=== PATIENT | male | born 1955 | race Caucasian/White ===

== ENCOUNTER → 2019-05-10 | Outpatient (CLI) | payer BC ==
--- NOTE | 2019-05-10 11:20 | RAD ---
ABDOMEN COMPLETE History: Abnormal liver function tests Comparison: None available Findings: Multiple sonographic images of the abdomen are submitted. There is no abnormality of the visualized pancreas. Hepatic echotexture is within normal limits. Right lobe of liver measured 16 cm longitudinal. Common bile duct is within normal about 0.6 cm. There has been cholecystectomy. Right kidney measured 10.9 x 4.1 x 3.8 cm, no hydronephrosis. Left kidney measured 11.7 x 4.4 x 5.1 cm, no hydronephrosis. Spleen measured 11 cm, some granulomas present. Impression: 1. No significant abnormality is demonstrated. There has been cholecystectomy. Electronically signed by: Stephon Benton MD (05/10/2019 11:17 AM) [id number]
== END | disposition home or self-care (01) ==
LOC: US 07:38
PROVIDERS: ATTEND Family Medicine
DX: R94.5 Abnormal results of liver function studies (principal); L92.9 Granulomatous disorder of the skin and subcutaneous tissue, unspecified; N13.30 Unspecified hydronephrosis; Z90.49 Acquired absence of other specified parts of digestive tract
CPT/HCPCS: 76700

== ENCOUNTER → 2020-04-13 | Outpatient (CLI) | payer MEDICARE ==
[~2020-04-13] MED LIST: IOHEXOL 240 MG/ML 50ML VIAL. ONE; IOHEXOL 240 MG/ML 50ML VIAL. PO ONE; IOHEXOL 300 MG/ML 75 ML VIAL. IV ONE
--- NOTE | 2020-04-14 09:42 | RAD ---
CT NECK CHEST ABD PELVIS W CON Clinical Indication: Weight loss, history of malignancy COMPARISON: None TECHNIQUE: Multiple contiguous axial images were obtained throughout the chest, abdomen, and pelvis with the use of IV contrast. Axial images were reformatted into coronal and sagittal planes. 75 mL Omnipaque 300 was administered. One or more of the following dose reduction techniques were utilized: Automated exposure control (AEC), Adjustment of mA and/or kV according to patient size, Use of iterative reconstruction technique such as ASiR, CT scan done according to ALARA and image gently/image wisely. Findings: Scattered subcentimeter lymph nodes are seen in the neck. None are pathologically enlarged or abnormally enhancing. The parotid, submandibular, and thyroid glands are atrophic. The muscles of the neck are normal. Vessels of the neck demonstrate normal course, caliber, and enhancement. The visualized aerodigestive tract is normal. The visualized posterior fossa and brain is unremarkable. Moderate right maxillary sinus disease. Left maxillary sinus mucus retention cyst. There is no axillary, mediastinal, or hilar adenopathy. Calcified mediastinal and hilar lymph nodes consistent with remote renal disease disease. The thoracic aorta diameter is normal. The cardiac size is normal. Coronary artery atherosclerotic disease. There is no pericardial effusion. The central airways are patent. No pulmonary mass or consolidation. Calcified pulmonary granulomas. No pleural effusion is observed. There is no pneumothorax. Paraseptal and centrilobular emphysema. The liver, pancreas, and adrenal glands are unremarkable. Cholecystectomy. Calcified splenic granulomas. Duplicated left renal collecting system. No hydronephrosis or opaque urinary calculi. There is no significant mesenteric or retroperitoneal adenopathy identified. There is no evidence of free intraperitoneal fluid or pneumoperitoneum. Mild colonic diverticulosis. Diffuse aortoiliac atherosclerotic disease. Bladder is unremarkable. There is no significant pelvic ascites. No significant iliac or inguinal adenopathy is identified. Degenerative changes of the spine. No aggressive lytic or blastic osseous lesions. IMPRESSION: No mass or lymphadenopathy in the neck, chest, abdomen, or pelvis. Electronically signed by: Stephon Breaux MD (04/14/2020 9:39 AM) [facility]
== END | disposition home or self-care (01) ==
LOC: CT 12:52
PROVIDERS: ATTEND Family Medicine
DX: C76.0 Malignant neoplasm of head, face and neck (principal); R63.4 Abnormal weight loss
CPT/HCPCS: 70491; 71260; 74177; Q9967

== ENCOUNTER 2021-07-30 11:50 | Inpatient (IN) | payer MEDICARE ==
[~2021-07-30] VITALS: Ht 170.2 cm; Wt 66.4 kg
--- NOTE | 2021-07-30 12:26 | PHYS DOC ---
Past History Past Surgical History: No Surgical History Alcohol Use: None General Adult EDM: Chief Complaint: SHORTNESS OF BREATH HPI: HPI: 66-year-old male presents with shortness of breath. Patient was diagnosed COVID-19 positive a few days ago. He was placed on medications by his primary care physician including azithromycin supplements, and an inhaler. The patient called EMS today because he is feeling more short of breath. When he stands up and attempts to do anything he gets dizzy. He also has some persistent nausea. Patient was not vaccinated against COVID-19. He denies chest pain. Patient has never been on oxygen previously. He is requiring 3 to 4 L at this time. No history of COPD or asthma. Review of Systems: Review of Systems: Constitutional: Denies fever or chills Eyes: Denies change in visual acuity HENT: Denies nasal congestion or sore throat Respiratory: shortness of breath Cardiovascular: Denies chest pain or edema GI: Denies abdominal pain, nausea, vomiting, bloody stools or diarrhea : Denies dysuria Musculoskeletal: Denies back pain or joint pain Integument: Denies rash Neurologic: Dizziness. Denies headache, focal weakness or sensory changes Endocrine: Denies polyuria or polydipsia Lymphatic: Denies swollen glands Psychiatric: Denies depression or anxiety Allergies: Allergies: Allergies Coded Allergies Type Severity Reaction Last Updated Verified No Known Drug Allergies 04/13/20 No Physical Exam: PE: Constitutional: Well developed, well nourished, no acute distress, non-toxic appearance. [] HENT: Normocephalic, atraumatic, bilateral external ears normal, oropharynx moist, no oral exudates, nose normal. [] Eyes: PERRLA, EOMI, conjunctiva normal, no discharge. [] Neck: Normal range of motion, no tenderness, supple, no stridor. [] Cardiovascular: Heart rate regular rhythm, no murmur [] Lungs & Thorax: Bilateral breath sounds diminished. on 3L nasal cannula. [] Abdomen: Bowel sounds normal, soft, no tenderness, no masses, no pulsatile masses. [] Skin: Warm, dry, no erythema, no rash. [] Back: No tenderness, no CVA tenderness. [] Extremities: No tenderness, no cyanosis, no clubbing, ROM intact, no edema. [] Neurologic: Alert and oriented X 3, normal motor function, normal sensory function, no focal deficits noted. [] Psychologic: Affect normal, judgement normal, mood normal. [] Current Patient Data: Vital Signs: Vital Signs Date Time Temp Pulse Resp B/P (MAP) Pulse Ox O2 Delivery O2 Flow Rate FiO2 07/30/21 12:00 93 4.0 07/30/21 11:53 98.3 83 16 148/88 (108) Nasal Cannula EKG: EKG: [] Radiology/Procedures: Radiology/Procedures: [] Impressions: CTA chest with contrast dated 07/30/2021. COMPARISON: None CLINICAL INDICATION: Shortness of breath. Covid 19. TECHNIQUE: Contiguous axial imaging of the chest performed following intravenous and administration of 100 cc Omnipaque 350. Study was performed as dedicated PE protocol with thin cut coronal MIPS 3-D reconstruction. One or more of the following individualized dose reduction techniques were utilized for this examination: 1. Automated exposure control 2. Adjustment of the mA and/or kV according to patient size 3. Use of iterative reconstruction technique FINDINGS: Contrast bolus is adequate. No evidence of central, lobar or segmental pulmonary embolus. Subsegmental branches are not well evaluated based on technique. Heart size is upper limits of normal. No pericardial effusion. Coronary artery calcifications. There are calcified mediastinal and right hilar lymph nodes. Central airways are patent. Patchy groundglass opacity throughout both lungs, peripheral and basilar predominant. There is superimposed mild to moderate emphysema. No significant pleural effusion. No pneumothorax. Images of the upper abdomen are unremarkable. Bone windows show no acute findings. Multilevel spondylosis. IMPRESSION: 1. No evidence of central, lobar or segmental pulmonary embolus. 2. Patchy groundglass opacity throughout both lungs, consistent with history of Covid 19 pneumonitis. 3. Mild to moderate emphysema. 4. Old granulomatous disease. 5. Coronary artery calcifications. Electronically signed by: Jung Lazaro MD (07/30/2021 1:20 PM) [facility] [place] DICTATED AND SIGNED BY: JUNG LAZARO MD DATE: 07/30/21 1311 CC: TERENCE ORDAZ MD; LUKASZ SURESH DO ~MTH0 0 Heart Score: C/O Chest Pain: No Risk Factors: Risk Factors: DM, Current or recent (<one month) smoker, HTN, HLP, family history of CAD, obesity. Risk Scores: Score 0 - 3: 2.5% MACE over next 6 weeks - Discharge Home Score 4 - 6: 20.3% MACE over next 6 weeks - Admit for Clinical Observation Score 7 - 10: 72.7% MACE over next 6 weeks - Early Invasive Strategies Course & Med Decision Making: Course & Med Decision Making Pertinent Labs and Imaging studies reviewed. (See chart for details) The patient's labs are unremarkable. His CT CTA of the chest shows no pulmonary embolus but he does have bilateral groundglass opacities consistent with COVID- 19. I have covered him with Rocephin and. He is requiring oxygen to maintain his oxygen saturation. I will admit him to the hospital. I spoke with Dr. Colon and he has accepted the patient for admission. [] Dragon Disclaimer: Dragon Disclaimer: This electronic medical record was generated, in whole or in part, using a voice recognition dictation system. Departure Departure: Impression: Primary Impression: COVID-19 Additional Impression: Pneumonia of both lungs Disposition: ADMITTED INPATIENT Admitting Physician: Andree Colon Condition: STABLE Referrals: TERENCE ORDAZ MD (PCP) LUKASZ SURESH DO Jul 30, 2021 12:26
[2021-07-30] MEDS ORDERED: CONTRAST GIVEN. MC PRN (12:45)
[2021-07-30] MEDS ORDERED: IOHEXOL 350 MG/ML 100 ML VIAL. IV ONE (12:45)
[2021-07-30 13:22] LABS: BGAS PH 7.46 (7.35-7.46)
--- NOTE | 2021-07-30 13:22 | RAD ---
CTA chest with contrast dated 07/30/2021. COMPARISON: None CLINICAL INDICATION: Shortness of breath. Covid 19. TECHNIQUE: Contiguous axial imaging of the chest performed following intravenous and administration of 100 cc Om nipaque 350. Study was performed as dedicated PE protocol with thin cut coronal MIPS 3-D reconstructi on. One or more of the following individualized dose reduction techniques were utilized for this examinat ion: 1. Automated exposure control 2. Adjustment of the mA and/or kV according to patient size 3. Use of iterative reconstruction technique FINDINGS: Contrast bolus is adequate. No evidence of central, lobar or segmental pulmonary embolus. Subsegmenta l branches are not well evaluated based on technique. Heart size is upper limits of normal. No pericardial effusion. Coronary artery calcifications. There are calcified mediastinal and right hilar lymph nodes. Central airways are patent. Patchy groundglass opacity throughout both lungs, peripheral and basilar predominant. There is superimposed mild to moderate emphysema. No significant pleural effusion. No pn eumothorax. Images of the upper abdomen are unremarkable. Bone windows show no acute findings. Multilevel spondyl osis. IMPRESSION: 1. No evidence of central, lobar or segmental pulmonary embolus. 2. Patchy groundglass opacity throughout both lungs, consistent with history of Covid 19 pneumonitis. 3. Mild to moderate emphysema. 4. Old granulomatous disease. 5. Coronary artery calcifications. Electronically signed by: Jung Lazaro MD (07/30/2021 1:20 PM) [facility]
[2021-07-30 13:30] LABS: BASO % 1 % (0-3); EOS % 0 % (0-3); HEMATOCRIT 39.4 % (39.0-53.0); HEMOGLOBIN 13.5 g/dL (13.0-17.5); LYMPH # 0.4 x10^3/uL (1.0-4.8); LYMPH % 8 % (24-48); MEAN CORPUSCULAR HEMOGLOBIN 33 pg (25-35); MEAN CORPUSCULAR HGB CONC 34 g/dL (31-37); MEAN CORPUSCULAR VOLUME 95 fL (79-100); MONO # 0.3 x10^3/uL (0.0-1.1); MONO % 6 % (0-9); NEUT # 3.8 x10^3uL (1.8-7.7); NEUT % 85 % (31-73); PLATELET COUNT 151 x10^3/uL (140-400); RED BLOOD COUNT 4.13 x10^6/uL (4.30-5.70); RED CELL DISTRIBUTION WIDTH 13.6 % (11.5-14.5); WHITE BLOOD COUNT 4.4 x10^3/uL (4.0-11.0)
--- NOTE | 2021-07-30 13:31 | EKG ---
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
[2021-07-30 13:39] LABS: CALCIUM 8.3 mg/dL (8.5-10.1); CREATININE 0.7 mg/dL (0.7-1.3); GFR 113.5; POTASSIUM 3.9 mmol/L (3.5-5.1)
[2021-07-30 13:44] LABS: ALBUMIN 2.8 g/dL (3.4-5.0); ALBUMIN/GLOBULIN RATIO 0.7 (1.0-1.7); TOTAL BILIRUBIN 0.4 mg/dL (0.2-1.0); TOTAL PROTEIN 6.8 g/dL (6.4-8.2)
[2021-07-30] MEDS ORDERED: IV NORMAL SALINE 50ML 50 ML ONE (14:59)
[2021-07-30] MEDS ORDERED: cefTRIAXone SODIUM 1 GM VIAL ONE (14:59)
[2021-07-30] MEDS ORDERED: DEXAMETHASONE SOD PHOS 10 MG/ML VIAL. IVP ONE (15:00)
[2021-07-30] MEDS ORDERED: AZITHROMYCIN 250 MG TABLET. PO ONE (15:00)
[2021-07-30] MEDS ORDERED: ENOXAPARIN 40 MG/0.4 ML SYRINGE. SQ ONE (15:15)
[2021-07-30] MEDS ORDERED: ONDANSETRON PF 4 MG/2 ML VIAL. IVP PRN (15:30)
--- NOTE | 2021-07-30 19:20 | NUR ---
The patient, CHANTELLE DOZIER, 66 y/o, M admitted by GENI RIVERA MD, was given written information regarding hospital policies, unit procedures and contact persons. Valuables were checked and vitals obtained. Pt is admitted with Covid 19 and PNE. Pt is requiring 4L of oxygen which he does not use at home. Pt is up standby do to fall at home. He is A&Ox4 able to express own concerns. Will continue to monitor.
[2021-07-30 19:31] VITALS: BP 117/76
[2021-07-30] MEDS ORDERED: ZOLPIDEM 5 MG TABLET. PO PRN (21:00)
[2021-07-30] MEDS ORDERED: HYDROcodone/APAP 10/325 1 TAB TABLET PO PRN (21:00)
[2021-07-30] MEDS ORDERED: REMDESIVIR LOAD in IV NORMAL SALINE 250ML TV IV ONE (22:00)
[2021-07-30 23:48] VITALS: BP 127/75
[2021-07-31] MEDS: DEXAMETHASONE SOD PHOS 10 MG/ML VIAL. IV SCH ×2 (05:37→12:04)
[2021-07-31] MEDS ORDERED: LEVOTHYROXINE 112 MCG TABLET PO SCH (06:00)
[2021-07-31 06:34] VITALS: BP 114/72
--- NOTE | 2021-07-31 06:54 | NUR ---
PTS NC OFF WHEN GETTING VIALS THIS AM. PT O2 SAT WAS 67 PERCENT. O2 APPLIED AT 10 LITERS PT SATURATION WOULDN'T GET ABOVE 86 PERCENT. RESPIRATORY CALLED AND SAW PT EDUCATED ON INCENTIVE SPIROMETRY AND Monday. PT VERBALIZED UNDERSTANDING. VITALS MACHINE LEFT IN PTS ROOM SO PT COULD MONITOR 02 SAT. PT ON 12 LITERS HIGH FLOW NC CURRENTLY SATING AT 91 PERCENT. WILL CONTINUE TO MONITOR PT.
[2021-07-31 07:16] LABS: HEMATOCRIT 39.7 % (39.0-53.0); HEMOGLOBIN 13.6 g/dL (13.0-17.5); RED BLOOD COUNT 4.1 x10^6/uL (4.30-5.70); WHITE BLOOD COUNT 4.8 x10^3/uL (4.0-11.0)
[2021-07-31 07:37] LABS: ALBUMIN 2.7 g/dL (3.4-5.0); ALBUMIN/GLOBULIN RATIO 0.6 (1.0-1.7); C REACTIVE PROTEIN 67.5 mg/L (0-3.3); CALCIUM 8.5 mg/dL (8.5-10.1); CREATININE 0.9 mg/dL (0.7-1.3); POTASSIUM 4.1 mmol/L (3.5-5.1); TOTAL BILIRUBIN 0.3 mg/dL (0.2-1.0); TOTAL PROTEIN 6.9 g/dL (6.4-8.2)
[2021-07-31] MEDS ORDERED: IPRATRPIUM/ALBUTEROL 0.5/2.5MG 3 ML NEBU. ONE (08:30)
[2021-07-31] MEDS ORDERED: BUDESONIDE 0.5 MG/2 ML NEBU ONE (08:30)
[2021-07-31] MEDS ORDERED: ATORVASTATIN CALCIUM 20 MG TABLET PO SCH (09:00)
[2021-07-31] MEDS ORDERED: FAMOTIDINE 20 MG TABLET PO SCH (09:30)
[2021-07-31] MEDS ORDERED: ASCORBIC ACID 1,000 MG TABLET PO SCH (09:30)
[2021-07-31] MEDS ORDERED: ZINC SULFATE 220 MG CAPSULE. PO SCH (09:30)
[2021-07-31 11:01] VITALS: BP 112/72
[2021-07-31] MEDS ORDERED: IPRATRPIUM/ALBUTEROL 0.5/2.5MG 3 ML NEBU. NEB SCH (12:00)
[2021-07-31 16:05] VITALS: BP 111/61
--- NOTE | 2021-07-31 16:24 | HP ---
DATE OF SERVICE: 07/31/2021 ADMIT DATE: 07/30/2021 HISTORY OF PRESENT ILLNESS: The patient is a 66-year-old male patient who presented to the Emergency Room of [facility] with a complaint of shortness of breath. The patient was diagnosed with COVID-19 positive a few days ago. He was placed on medication by his primary care physician including Zithromax, supplements and inhaler. The patient called EMS on the day of admission because he is feeling much short of breath. When he stands up and attempts to do anything, he gets very dizzy. He also has some persistent nausea. The patient was not vaccinated against COVID-19. He denies any chest pain. The patient has never been on oxygen previously. On arrival to the Emergency Room, he was requiring 3-4 liters of oxygen and has no history of COPD or bronchial asthma. He was extensively investigated in the Emergency Room, has had lab work and imaging studies. His lab work showed his white cell count was normal. His chemistry was also mostly unremarkable. His blood gases showed a pH of 7.47, pCO2 of 33, pO2 of 68, bicarbonate 23 and oxygen saturation was 94%. His CT angio of the chest showed no evidence of central lobar or segmental pulmonary emboli, has patchy ground-glass opacities throughout both lungs consistent with a history of COVID-19 pneumonia. He has [id number] emphysema, old granulomatous disease and coronary artery calcification. The patient was admitted with coronavirus pneumonia, possible superimposed community-acquired pneumonia, acute hypoxic respiratory failure. He was treated with IV antibiotic in the form of ceftriaxone and Zithromax together with remdesivir, Lovenox and dexamethasone. PAST MEDICAL HISTORY: Unremarkable except for insomnia and chronic back pain. PAST SURGICAL HISTORY: Unremarkable. ALLERGIES: He has no known drug allergies. MEDICATIONS: He is on Ambien 10 mg for insomnia as well as ibuprofen as needed for chronic back pain. FAMILY HISTORY: He has two brothers and one sister, apparently healthy. His mother is . Father is still alive at the age of 87. SOCIAL HISTORY: He is . He has a son and a daughter. He does not smoke, drink alcohol or use recreational drugs. 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 REVIEW OF SYSTEMS: As per history of present illness. PHYSICAL EXAMINATION: GENERAL: On arrival to the Emergency Room, he was clearly hypoxic, but there was no pallor, jaundice, cyanosis, no lymphadenopathy, no thyromegaly, no jugular venous distention. No limb edema. VITAL SIGNS: His heart rate was 83, blood pressure was 148/88, temperature was 98.3, respiratory rate was 16 and oxygen saturation was 85% on room air. HEAD, EYES, EARS, NOSE AND THROAT: Normocephalic, atraumatic. NECK: Supple. HEART: Showed normal first and second sounds, no gallop or murmur. CHEST: Showed central trachea, equal bilateral chest expansion, air entry, ____ bilateral basal crepitation. I could not appreciate any rhonchi. ABDOMEN: Distended, soft, nontender. NEUROLOGIC: He was grossly intact. LABORATORY DATA: His lab work on admission showed a white cell count of 4400, hemoglobin 13.5, hematocrit 39, MCV 95, and a platelet count of 151,000 with normal manual differential. His chemistry showed a serum sodium of 133, potassium 3.9, chloride 99, bicarbonate 23, anion gap of 11, BUN 24, creatinine 0.7. Estimated GFR was 113 mL per minute. His glucose 114, calcium was 8.3. Total bilirubin, AST, ALT, alkaline phosphatase were normal. Total protein 6.8, albumin 2.8. His blood gases showed a pH of 7.47, pCO2 of 33, pO2 of 68, oxygen saturation was 94% on FiO2 of 36%. ASSESSMENT AND PLAN: The patient was admitted with COVID-19 pneumonia, acute hypoxic respiratory failure, questionable superimposed community-acquired pneumonia. He has also emphysema according to the CT scan and has insomnia and chronic back pain. He was started on IV dexamethasone and remdesivir, IV ceftriaxone as well as Zithromax and also vitamin D and Lovenox 40 mg subcutaneously together with zinc sulfate and ascorbic acid. We did continue on all his other medications. AMM/ARV/IQB DR: ADRY/nguyễn TID: [id number]
[2021-07-31] MEDS ORDERED: AZITHROMYCIN 500 MG in IV NORMAL SALINE 250ML 250 ML IV SCH (17:00)
--- NOTE | 2021-07-31 17:24 | NUR ---
discharge note Pt discharged at 1724 via ems to [facility]
[2021-07-31] MEDS ORDERED: BUDESONIDE 0.5 MG/2 ML NEBU NEB SCH (20:00)
[2021-07-31] MEDS ORDERED: ENOXAPARIN 40 MG/0.4 ML SYRINGE. SQ SCH (21:00)
[2021-07-31] MEDS ORDERED: IPRATROPIUM/ALBUTEROL 20/100mcg/INH INHALER. INH SCH (21:30)
[2021-07-31] MEDS ORDERED: REMDESIVIR 100mg in NORMAL SALINE 250ML X 4 DAYS IV SCH (22:00)
[2021-08-07] MEDS ORDERED: CHOLECALCIFEROL (VITAMIN D3) 50,000 UNIT CAPSULE PO SCH (09:30)
== END 2021-07-31 18:21 | disposition short-term general hospital (02) | DRG 177 ==
LOC: ER 11:50 → 1 SOUTH 15:23
PROVIDERS: ADMIT Internal Medicine; ATTEND Internal Medicine
PROC: XW033E5 Introduction of Remdesivir Anti-infective into Peripheral Vein, Percutaneous Approach, New Technology Group 5 (ICD-10-PCS; principal; 2021-07-30)
PROC: 5A0935A Assistance with Respiratory Ventilation, Less than 24 Consecutive Hours, High Flow/Velocity Cannula (ICD-10-PCS; 2021-07-31)
DX: U07.1 COVID-19 (principal); J12.82 Pneumonia due to coronavirus disease 2019; J96.01 Acute respiratory failure with hypoxia; J43.9 Emphysema, unspecified; G89.29 Other chronic pain; G47.00 Insomnia, unspecified; I25.10 Atherosclerotic heart disease of native coronary artery without angina pectoris
CPT/HCPCS: 36415; 36600; 71275; 80053; 82803; 83605; 84484; 85025; 85027; 86140; 87040; 93005; 94640; 96365; 96372; 96375; J0696; J1100; J1650; J2405; J7050; Q9967; 99285-25